=== PATIENT | male | born 1960 | race Caucasian/White ===

== ENCOUNTER 2016-05-02 07:04 | Observation (INO) | payer OTHER ==
[2016-05-02] MEDS ORDERED: MIDAZOLAM 2 MG/2 ML VIAL IVP ONE (07:08)
[2016-05-02] MEDS ORDERED: NS 1,000 ML IV ONE (07:08)
--- NOTE | 2016-05-02 07:37 | CPEKG ---
Heart Rate: 68 RR Interval: 882 P-R Interval: 164 QRSD Interval: 86 QT Interval: 400 QTC Interval: 426 P [place]: 35 QRS [place]: 7 T Wave [place]: 19 EKG Severity - NORMAL ECG - EKG Impression: SINUS RHYTHM Electronically Signed By: Dashawn Cordon 02-May-2016 11:09:24
[2016-05-02 07:52] LABS: % IMMATURE GRANULYOCYTES 0.4 % (0.0-1.1); ABSOLUTE IMMATURE GRANULOCYTES 0.02 10^3/uL (0.00-0.10); ADD DIFF? NO; ADD MORPH? NO; ADD SCAN? NO; ATYPICAL LYMPHOCYTE FLAG 10 (0-99); FRAGMENT RBC FLAG 0 (0-99); HEMATOCRIT 52.9 % (40.0-51.0); HEMOGLOBIN 18.4 g/dL (13.7-17.5); LEFT SHIFT FLG 0 (0-99); LIPEMIA HEMOLYSIS FLAG 90 (0-99); MEAN CELL HEMOGLOBIN 30.9 pg (27.9-34.1); MEAN CELL HEMOGLOBIN CONCENTR. 34.8 g/dL (32.4-36.7); MEAN CELL VOLUME 88.8 fL (81.5-99.8); MEAN PLATELET VOLUME 10.3 fL (8.7-11.7); PLATELET CLUMPS FLAG 0 (0-99); PLATELET COUNT 128 10^3/uL (150-400); RED BLOOD CELL COUNT 5.96 10^6/uL (4.40-6.38); RED CELL DISTRIBUTION WIDTH 12.2 % (11.5-15.2)
[2016-05-02 08:02] LABS: APTT 31.5 SEC (23.0-38.0); PROTIME(PATIENT) 13.1 SEC (12.0-15.0)
[2016-05-02] MEDS ORDERED: LIDOCAINE 1% 30 ML SDV ONE (08:09)
[2016-05-02] MEDS ORDERED: BUPIVACAINE 0.5% 30 ML SDV ONE (08:09)
[2016-05-02] MEDS ORDERED: HEPARIN 10,000 UNIT/10 ML MDV ONE (08:09)
[2016-05-02] MEDS ORDERED: ISOPROTERENOL HCL 0.2 MG/ML 5ML AMP ONE (08:09)
[2016-05-02] MEDS ORDERED: PROPOFOL 200 MG/20 ML VIAL ONE ×2 (08:42→10:28)
[2016-05-02] MEDS ORDERED: ONDANSETRON 4 MG/2 ML VIAL ONE (08:42)
[2016-05-02] MEDS ORDERED: DEXAMETHASONE 4 MG/ML VIAL ONE (08:42)
[2016-05-02] MEDS ORDERED: ROCURONIUM 50 MG/5 ML VIAL ONE ×2 (08:42→11:06)
[2016-05-02] MEDS ORDERED: LIDOCAINE 2% 100 MG/5 ML SYR IVP ONE (08:42)
[2016-05-02] MEDS ORDERED: fentaNYL 100 MCG/2 ML INJ ONE (08:42)
[2016-05-02 08:46] LABS: ANION GAP 11 mEq/L (8-16); CALCIUM 9.6 mg/dL (8.5-10.4); CARBON DIOXIDE 27 mEq/l (22-31); CHLORIDE 103 mEq/L (97-110); GLOMERULAR FILTRATION RATE > 60; GLUCOSE 93 mg/dL (70-100); MAGNESIUM 1.9 mg/dL (1.6-2.3); POTASSIUM 4.5 mEq/L (3.5-5.2); SODIUM 141 mEq/L (134-144)
[2016-05-02] MEDS ORDERED: DESFLURANE 240 ML BOTTLE IH ONE (09:06)
[2016-05-02] MEDS ORDERED: PHENYLEPHRINE HCL 100 MCG/ML SYR ONE ×2 (09:59→10:58)
[2016-05-02] MEDS ORDERED: SUGAMMADEX SODIUM 200 MG/2 ML VIAL IVP ONE (11:06)
[2016-05-02] MEDS ORDERED: ONDANSETRON 4 MG/2 ML VIAL IVP PRN (11:14)
[2016-05-02] MEDS ORDERED: OXYCODONE/APAP 5/325 TAB PO PRN (11:14)
[2016-05-02] MEDS ORDERED: ACETAMINOPHEN 325 MG TAB PO PRN (11:14)
--- NOTE | 2016-05-02 11:38 | CPEKG ---
Heart Rate: 76 RR Interval: 789 P-R Interval: 180 QRSD Interval: 92 QT Interval: 404 QTC Interval: 455 P [place]: 41 QRS [place]: 12 T Wave [place]: 16 EKG Severity - NORMAL ECG - EKG Impression: SINUS RHYTHM Electronically Signed By: Dashawn Cordon 02-May-2016 17:00:54
--- NOTE | 2016-05-02 12:35 | EPPROC ---
Electrophysiology Procedure Note: ELECTROPHYSIOLOGIC STUDY AND CATHETER MEDIATED ABLATION OF SLOW/FAST AV AVINASH REENTRY TACHYCARDIA PROCEDURES PERFORMED: 55978-88 EP evaluation with RA/RV/LA pace/record, with arrhythmia induction 17689-81 EP evaluation with RA/RV pace record, insert/reposition catheter, with arrhythmia induction 26452 Intracardiac catheter ablation, SVT arrhythmogenic focus 01905 3D mapping Fluoroscopy INDICATION: Recurrent SVT PROCEDURE: Catheters & Anesthesia: The patient arrived in the Electrophysiology Laboratory in the fasting state. The right clavicular region, right groin, and left groin area were prepped and draped in the usual sterile manner. Anesthesiologist Dr. Brian Taylor administered general anesthesia. Appropriate non-invasive blood pressure, pulse oximetry and end-tidal CO2 monitoring was established. All catheters were placed percutaneously using the modified Seldinger technique , and advanced into position under fluoroscopic guidance. One #6 [place] hexapolar non-deflectable electrode catheter was inserted into the right atrial appendage via the left femoral vein (2mm spacing; except the proximal ring which was 25cm from the tip - used for unipolar recordings). One #7 [place] deflectable octapolar electrode catheter was advanced to the His-bundle position via the left femoral vein (2mm spacing). One #7 [place] deflectable quadrapolar catheter was advanced to the anteroseptal right ventricle via the right femoral vein. One #7 [place] deflectable catheter with 10 pairs of electrodes was placed via the right femoral vein into the coronary sinus. Heparin was given to keep ACT > 200 s. Programmed stimulation was performed from the right atrium, right ventricle and coronary sinus (left atrium). Parahisian pacing demonstrated constant H-A interval with changing V-A intervals and stimulus-A intervals during capture and loss of capture of proximal RBB proving retrograde conduction over AV node. AVNRT was induced easily during infusion of isoproterenol 4 mcg/min. Ventricular extrastimuli delivered during tachycardia without altering antegrade His bundle activation did not advance next atrial potential, indicating that the tachycardia was not utilizing an accessory pathway for retrograde conduction. VA interval was 0 ms. Post entrainment of the tachycardia from the ventricle, there was VAHV response. Mapping of the right atrium and coronary sinus during AVNRT identified earliest atrial activation above the tendon of Frankie at a level slightly posterior to the level of the His bundle, consistent with retrograde conduction over the fast AV avinash pathway. A #8 [place] deflectable quadrapolar electrode catheter (2mm-5mm-2mm spacing) with 3.5 mm irrigated tip electrode and sensor for the 3D mapping Carto system was advanced to the right atrium. 3 D mapping of the inter-atrial septum and coronary sinus was performed and location of the AV node was marked. A SL2 sheath was used. RF applications were delivered to the region between the tricuspid annulus and the coronary sinus ostium, at the level of the upper edge of the coronary sinus ostium. Radiofrequency applications were also delivered along the roof of the proximal coronary sinus. Junctional rhythm occurred during all of the RF applications. Programmed stimulation was continued post ablation at baseline and during graded doses of isoproterenol upto 4mcg/min. Sustained AVNRT was not inducible. There were no echo beats. The catheters were removed. The long sheath was changed to a short 9 Fr sheath. The patient was transferred to the cardiovascular holding area in stable condition. Vascular access sheaths were removed in the holding area. There were no apparent complications. CONCLUSIONS 1. 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 ( Slow/fast AVNRT). 2. Successful ablation of the slow AV avinash pathway with elimination of 1:1 antegrade conduction over the slow AV avinash pathway, all retrograde conduction over the slow AV avinash pathway and the inducibility of AVNRT. 3. No complications. Patient Problems: Problems Problem Status Diagnosed Supraventricular tachycardia Acute
[2016-05-02 13:03] LABS: ANION GAP 8 mEq/L (8-16); CALCIUM 8.1 mg/dL (8.5-10.4); CARBON DIOXIDE 23 mEq/l (22-31); CHLORIDE 110 mEq/L (97-110); GLOMERULAR FILTRATION RATE > 60; GLUCOSE 114 mg/dL (70-100); MAGNESIUM 1.6 mg/dL (1.6-2.3); POTASSIUM 4.4 mEq/L (3.5-5.2); SODIUM 141 mEq/L (134-144)
[2016-05-02] MEDS: ZOLPIDEM TARTRATE 5 MG TAB PO PRN (22:16)
[2016-05-03] MEDS: ZOLPIDEM TARTRATE 5 MG TAB PO PRN (00:54)
[2016-05-03 05:33] LABS: % IMMATURE GRANULYOCYTES 0.5 % (0.0-1.1); ABSOLUTE IMMATURE GRANULOCYTES 0.04 10^3/uL (0.00-0.10); ADD DIFF? NO; ADD MORPH? NO; ADD SCAN? NO; ATYPICAL LYMPHOCYTE FLAG 0 (0-99); FRAGMENT RBC FLAG 10 (0-99); HEMATOCRIT 41.2 % (40.0-51.0); HEMOGLOBIN 14.4 g/dL (13.7-17.5); LEFT SHIFT FLG 0 (0-99); LIPEMIA HEMOLYSIS FLAG 90 (0-99); MEAN CELL HEMOGLOBIN 30.9 pg (27.9-34.1); MEAN CELL VOLUME 88.4 fL (81.5-99.8); MEAN PLATELET VOLUME 10.9 fL (8.7-11.7); PLATELET CLUMPS FLAG 0 (0-99); PLATELET COUNT 107 10^3/uL (150-400); RED BLOOD CELL COUNT 4.66 10^6/uL (4.40-6.38); RED CELL DISTRIBUTION WIDTH 12.2 % (11.5-15.2)
[2016-05-03 05:44] LABS: INR 1.08 (0.83-1.16); PROTIME(PATIENT) 13.9 SEC (12.0-15.0)
[2016-05-03 05:57] LABS: ANION GAP 8 mEq/L (8-16); CALCIUM 8.5 mg/dL (8.5-10.4); CARBON DIOXIDE 21 mEq/l (22-31); CHLORIDE 108 mEq/L (97-110); CREATININE 0.9 mg/dL (0.7-1.3); GLOMERULAR FILTRATION RATE > 60; GLUCOSE 97 mg/dL (70-100); SODIUM 137 mEq/L (134-144)
[2016-05-03 06:05] LABS: CREATINE KINASE-MB FRACTION 1.04 ng/mL (0-3.19); TROPONIN I 0.193 ng/mL (0-0.034)
[2016-05-03 08:18] VITALS: PULSE 90; RESP 20; TEMP 98.6; O2SAT 94
[2016-05-03 08:35] VITALS: BP 118/70
--- NOTE | 2016-05-03 08:40 | ECHO ---
[id number] + + [address] : : [place] [address] : : [phone] + + Adult Echocardiographic Report + ----+ :Name: LETITIA PRABHAKARDayo Date: 05/03/2016 07:47 AM : : Hospital Admission Number: [id number] Location: 210: :: 1960 Gender: Male Height: 69 in : :Age: 56 yrs Race: WH Weight: 171 lb : :Reason For Study: F/U post EP : : BSA: 1.9 meters2 : :History: No previous : + ----+ MMode/2D Measurements & Calculations IVSd: 0.89 cm RVDd: 3.0 cm FS: 35.2 % LVOT diam: 2.1 cm LVPWd: 1.0 cm LVIDd: 4.5 cm EDV(Teich): LVOT area: LVIDs: 2.9 cm 94.0 ml 3.6 cm2 ESV(Teich): 33.2 ml EF(Teich): 64.7 % LVLd ap4: 7.2 cm SV(MOD-sp4): EDV(MOD-sp4): 54.0 ml 77.0 ml LVLs ap4: 5.8 cm ESV(MOD-sp4): 23.0 ml EF(MOD-sp4): 70.1 % Normal Measurement Values: + + :LVIDd (3.5-5.7cm) IVSd (0.6-1.1cm) LVPWd (0.6-1.1cm) Aortic Root (2.0-3.7cm)Left Atrium (1.5-4.0cm): :LV Vol(d) (76-115ml) LV Vol(s) (29-48ml) Ejec Fraction (50-65%)PV Robert (0.6- 1.2m/s) TV Robert (0.4-1.0m/s) : :MV E Robert (0.8-1.0m/s)MV A Robert (0.3-1.0m/s)LVOT Robert (0.7-1.2m/s) Asc Ao Robert ( 0.9-1.8m/s) : + + Doppler Measurements & Calculations MV E max robert: MV V2 max: Ao mean PG: LV V1 mean P.0 cm/sec 99.9 cm/sec 4.3 mmHg 1.8 mmHg MV A max robert: MV max PG: Ao V2 mean: LV V1 mean: 71.6 cm/sec 4.0 mmHg 99.5 cm/sec 62.3 cm/sec MV E/A: 1.1 MV V2 mean: Ao V2 VTI: 26.6 cm LV V1 VTI: 20.0 cm MV dec time: 72.9 cm/sec ANTHONY(I,D): 2.7 cm2 0.23 sec MV mean P.3 mmHg MV V2 VTI: 21.6 cm MVA(VTI): 3.3 cm2 SV(LVOT): 71.1 ml PA V2 max: TR max robert: Pulm Sys Robert: 133.7 cm/sec 127.0 cm/sec 70.1 cm/sec PA max PG: TR max PG: Pulm Holland Robert: 7.2 mmHg 6.5 mmHg 66.6 cm/sec PA V2 mean: RAP systole: Pulm A Revs Robert: 87.8 cm/sec 10.0 mmHg 34.1 cm/sec PA mean PG: RVSP(TR): Pulm A Revs Dur: 3.6 mmHg 16.5 mmHg 0.11 sec PA V2 VTI: 27.2 cm Pulm S/D: 1.1 Left Ventricle The left ventricle is normal in size and function. There is normal left ventricular wall thickness. Ejection Fraction = 60-65%. There is Doppler evidence for diastolic dysfunction. Right Ventricle The right ventricle is normal in size and function. Atria The left atrial size is normal. Right atrial size is normal. The interatrial septum is intact with no evidence for an atrial septal defect. Mitral Valve The mitral valve is normal in structure and function. There is no mitral valve stenosis. There is trace mitral regurgitation. Tricuspid Valve The tricuspid valve is normal in structure and function. There is no tricuspid stenosis. There is trace tricuspid regurgitation. Right ventricular systolic pressure is normal. Aortic Valve The aortic valve is normal in structure and function. There is no aortic stenosis. There is no aortic insufficiency. Pulmonic Valve The pulmonic valve is normal in structure and function. There is no pulmonic valvular stenosis. There is no pulmonic valvular regurgitation. Great Vessels The aortic root is normal size. Pericardium/Pleural There is a fat pad seen. There is no pericardial effusion. Conclusion A complete two-dimensional transthoracic echocardiogram was performed (2D, M-mode, Doppler and color flow Doppler). The left ventricle is normal in size and function. Ejection Fraction = 60-65%. There is Doppler evidence for diastolic dysfunction. The interatrial septum is intact with no evidence for an atrial septal defect. There is trace mitral regurgitation. There is trace tricuspid regurgitation. Right ventricular systolic pressure is normal. The aortic valve is normal in structure and function. There is no pericardial effusion. Final Reading Physician: Starr Aragon signed on 05/03/2016 08:39 AM Ordering Physician: Dashawn Cordon Performed By: Ada Vazquez
--- NOTE | 2016-05-03 08:47 | CPEKG ---
Heart Rate: 88 RR Interval: 682 P-R Interval: 168 QRSD Interval: 90 QT Interval: 356 QTC Interval: 431 P [place]: 44 QRS [place]: 20 T Wave [place]: 29 EKG Severity - ABNORMAL ECG - EKG Impression: SINUS RHYTHM EKG Impression: PVCs Electronically Signed By: Dashawn Cordon 03-May-2016 09:08:54
[2016-05-03] MEDS ORDERED: LOSARTAN POTASSIUM 50 MG TAB PO SCH (09:00)
[2016-05-03] MEDS ORDERED: ROSUVASTATIN CALCIUM 20 MG TAB PO SCH (09:00)
[2016-05-03] MEDS ORDERED: ASPIRIN 81 MG CHEWABLE TAB PO SCH (09:00)
[2016-05-03] MEDS ORDERED: METOPROLOL SUCCINATE XR 25 MG TAB PO SCH (12:00)
--- NOTE | 2016-05-03 16:06 | GDS ---
[f rep st] DISCHARGE SUMMARY ADMISSION DIAGNOSES: 1. Supraventricular tachycardia. 2. Planned electrophysiology study with possible ablation. DISCHARGE DIAGNOSES: 1. Premature ventricular contractions. 2. Supraventricular tachycardia. 3. Successful atrioventricular avinash reentry tachycardia ablation. COURSE OF HOSPITALIZATION: This gentleman was seen by Dr. Dashawn Cordon with palpitations, identified as SVT. Medication therapy was ineffective. It was recommended to proceed with electrophysiology study and possible ablation therapy. He was in agreement with this plan. He was taken to the EP lab by Dr. Dashawn Cordon on 05/02/2016, where he was able to identify and isolate by catheter-mediated ablation of slow-fast AVNRT. The ablation was successful. He was taken to the PCU for overnight observation, where he has done well. He did have bleeding of the right groin, which responded well to pressure and pressure dressing. He has been up ambulating this morning, having no problems. His blood pressure and pulse are stable. He has had PVCs throughout the night and noted this morning. This was discussed with Dr. Cordon. He will resume his home medications of Cozaar and metoprolol, and follow up with Dr. Cordon in 1 month. At that time, further recommendations will be addressed. He is feeling well and anxious for discharge. ALLERGIES: He is allergic to lisinopril and simvastatin. DISCHARGE MEDICATIONS: He will go home on Crestor 20 mg daily, Cozaar 50 mg daily, aspirin 81 mg daily, metoprolol succinate 25 mg daily, vitamin D2 50,000 units on Saturday, Tylenol 325 mg 1-2 tabs every 4 hours as needed for pain, not to exceed 3 g daily. DISCHARGE PHYSICAL EXAMINATION: VITAL SIGNS: On day of discharge, blood pressure 118/70, heart rate 78, oxygen saturation 94% on room air, temperature 37.0 Celsius. CARDIAC: Heart rate is regular with ectopy noted. Identified as PVCs on the monitor. No murmurs, rubs or gallops. RESPIRATORY: Lung sounds are clear to auscultation. No wheezes, rales, or rhonchi. Right groin has a small hematoma and is nontender. Left groin has no bleeding, no tenderness, no induration. Lower leg extremities have 2+ pulses bilaterally. He has no leg pain or numbness. TESTIN05/03/2016, EKG showed a sinus rhythm with PVCs with a rate of 88. 05/03/2016, echocardiogram with EF of 70%. Interatrial septum is intact with no evidence of ASD, no pericardial effusion. DISCHARGE PLAN: Groin site instructions were given, both written and verbally. He understands to avoid heavy lifting, pushing or pulling greater than 10 pounds for the next week. No tub or hot tub bathing for 1 week. Okay to walk slowly for exercise over the next week, then can gradually increase exercise. Follow up with Dr. Cordon in 1 month. His appointment has been previously made. At this time, he currently is stable for discharge. /[id number]/MODL MTDD
== END 2016-05-03 12:19 | disposition home or self-care (01) ==
LOC: FCATH 07:04 → F2W 10:11
PROVIDERS: ADMIT Internal Medicine Cardiovascular Disease; ATTEND Internal Medicine Cardiovascular Disease
PROC: B2161ZZ Fluoroscopy of Right and Left Heart using Low Osmolar Contrast (ICD-10-PCS; principal; 2016-05-02)
PROC: 5A1223Z Performance of Cardiac Pacing, Continuous (ICD-10-PCS; principal; 2016-05-02)
PROC: 02573ZZ Destruction of Left Atrium, Percutaneous Approach (ICD-10-PCS; principal; 2016-05-02)
PROC: 02563ZZ Destruction of Right Atrium, Percutaneous Approach (ICD-10-PCS; principal; 2016-05-02)
PROC: 02K83ZZ Map Conduction Mechanism, Percutaneous Approach (ICD-10-PCS; principal; 2016-05-02)
PROC: 4A023FZ Measurement of Cardiac Rhythm, Percutaneous Approach (ICD-10-PCS; principal; 2016-05-02)
PROC: 025K3ZZ Destruction of Right Ventricle, Percutaneous Approach (ICD-10-PCS; principal; 2016-05-02)
DX: I49.3 Ventricular premature depolarization (principal); I47.1 Supraventricular tachycardia; E78.5 Hyperlipidemia, unspecified
CPT/HCPCS: 93005; 93306; 93613; 93621; 93623; 93653; C1730; C1731; C1732; G0378; C1893; J1100; J1644; J2001; J2250; J2370; J2405; J2704; J3010